=== PATIENT | female | born 1970 ===

== ENCOUNTER 2016-12-01 11:41 | Emergency (ER) | payer OTHER ==
--- NOTE | 2016-12-01 15:54 | ED ORDER SUMMARY ---
..... Patient: LUCIE FITZGERALD OrderSheet VisitID: [id number] [address] [place] [address] 46y, F Registration Date/Time: 12/01/2016 ORDER SHEET Weight: 61.2 kg (stated) Allergies: No Known Drug Allergy GENERAL ORDERS: MEDICATION ORDERS: Vistaril PO 50 mg (NOW) (13:26 12/01/2016 Omar Nickerson) (13:43 KKnebel R.N.) (13:43 KKnebel R.N.) (13:43 KKnebel R.N.) IV FLUIDS: ORDER SHEET NOTES: This document has not been locked and should not be saved in the medical record.
--- NOTE | 2016-12-01 15:54 | ED NURSING NOTES ---
Clinical Report - Nurses [address] [place] [address] 12/01/2016 11:46 Patient: LUCIE FITZGERALD TRIAGE Triage time 12:05. Acuity: LEVEL 4. Chief Complaint: FATIGUE (can't sleep). Alert. No acute distress. BO COMA SCORE: Bo Coma Scale: 15- eyes open spontaneously (4); best verbal response- oriented x 4 (5); best motor response- obeys commands (6). --12:12 Rosy Heller R.N. 12:05 12/01/16. BP: 147/92. HR: 99. RR: 18. O2 saturation: 100% on room air. Temp: 98.3 F (oral). Pain level now: 0/10. --12:12 Rosy Heller R.N. Weight: 61.2 kg stated. Height/Length: 59 inches Per Patient. BMI: 27.3. --12:11 Rosy Heller R.N. Medications Abilify Oral (Tablet 5 mg), daily (hasn't been taking). LORazepam Oral, PRN. --12:07 Rosy Heller R.N. Medication/allergy information source: the patient's spouse. --12:12 Rosy Heller R.N. Allergies No Known Drug Allergy. --12:08 Rosy Heller R.N. History Arrived by private vehicle. Historian: patient. Unaccompanied. Primary physician ([facility]). Onset. (about 2 days). PAST MEDICAL HX: Last normal menstrual period- Oct 2016. SOCIAL HX: Smoker- current status unknown (no). No alcohol use or drug use. FALL RISK ASSESSMENT: Fall risk assessment completed. No fall risk identified. FUNCTIONAL ASSESSMENT: Functional assessment: no impairments noted. LEARNING NEEDS ASSESSMENT: The learning needs assessment revealed no barriers. --12:12 Rosy Heller R.N. PROBLEMS: Bipolar Disorder. --12:09 Rosy Heller R.N. ADDITIONAL SURGERIES: no known surgeries. Assessment GENERAL / NEURO / PSYCH: The patient is awake and alert, is oriented and appears agitated. RESPIRATORY: Respirations not labored. SKIN: Skin is warm and dry. --12:12 Rosy Heller R.N. Interventions ID band on patient. To treatment room. --12:12 Rosy Heller R.N. PHYSICAL ASSESSMENT GENERAL / NEURO / PSYCH: Alert. Oriented X 4. Appears in no acute distress. HEENT: No facial asymmetry noted. RESPIRATORY: Respirations not labored. CVS: Capillary refill less than 2 seconds. GI / : Abdomen nontender. SKIN: Skin is warm and dry. --12:18 Aubrie Sosa R.N. NURSING PROGRESS NOTES Pulse oximeter and NIBP monitor placed on patient. Patient gowned. Head of bed elevated. Two patient identifiers checked. Call light placed in reach. Side rails up x 1. Bed placed in lowest position. Brakes of bed on. Patient ready for evaluation- chart flagged. Patient waiting for evaluation. --12:19 Aubrie Sosa R.N. 13:37 12/01/2016 Vistaril (HydrOXYzine Pamoate) PO Capsules 50 mg given. Allergies verified, confirmed 5 rights and sedative warning given to the patient. --14:02 Aubrie Sosa R.N. ( patient resting quietly at bedside.). --14:31 Aubrie Sosa R.N. 16:04 12/01/2016 Vistaril (HydrOXYzine Pamoate) PO Capsules 50 mg given. Allergies verified, confirmed 5 rights and sedative warning given to the patient. --16:04 Aubrie Sosa R.N. DISPOSITION / DISCHARGE Departure time: 16:10 Dec 01 2016. Condition at departure: improved. No learning barriers present. Reviewed medication(s) side effects, precautions, dosing and course information. Patient verbalized understanding. Written instructions provided in Portuguese. The patient was discharged home and accompanied by spouse. She left the Emergency Department ambulatory and via private vehicle. Spouse driving. FALL RISK ASSESSMENT: Fall risk assessment completed. No fall risk identified. --16:10 Aubrie Sosa R.N. 16:09 12/01/16. BP: 141/90. HR: 105. O2 saturation: 99%. Pain level now: 0/10. --16:10 Aubrie Sosa R.N. Locked/Released at 12/01/2016 16:35 by Aubrie Sosa R.N.
--- NOTE | 2016-12-01 15:54 | ED ORDER SUMMARY ---
..... Patient: LUCIE FITZGERALD OrderSheet [facility] VisitID: [id number] [address] [place] [address] 46y, F Registration Date/Time: 12/01/2016 ORDER SHEET Weight: 61.2 kg (stated) Allergies: No Known Drug Allergy GENERAL ORDERS: MEDICATION ORDERS: Vistaril PO 50 mg (NOW) (13:26 12/01/2016 Omar Nickerson) (13:43 KKnebel R.N.) (13:43 KKnebel R.N.) (13:43 KKnebel R.N.) IV FLUIDS: ORDER SHEET NOTES: This document has not been locked and should not be saved in the medical record.
--- NOTE | 2016-12-01 15:54 | ED CLINICAL REPORT ---
Clinical Report - Physicians/Mid Levels [facility] [address] [place] [address] 12/01/2016 11:46 Patient: LUCIE FITZGERALD *This is a preliminary document and is subject to change Time Seen: 12:43; initial patient contact. PROGRESS AND PROCEDURES Course of Care: Vistaril 50 mg PO given. Physical exam findings are improved. Symptoms better. Rogers Veliz Dr.
--- NOTE | 2016-12-01 15:54 | ED CLINICAL REPORT ---
Clinical Report - Physicians/Mid Levels [facility] [address] [place] [address] 12/01/2016 11:46 Patient: LUCIE FITZGERALD *This is a preliminary document and is subject to change Time Seen: 12:43; initial patient contact. PROGRESS AND PROCEDURES Course of Care: Vistaril 50 mg PO given. Physical exam findings are improved. Symptoms better. Rogers Veliz Dr.
--- NOTE | 2016-12-01 15:54 | ED NURSING NOTES ---
Clinical Report - Nurses [address] [place] [address] 12/01/2016 11:46 Patient: LUCIE FITZGERALD TRIAGE Triage time 12:05. Acuity: LEVEL 4. Chief Complaint: FATIGUE (can't sleep). Alert. No acute distress. BO COMA SCORE: Bo Coma Scale: 15- eyes open spontaneously (4); best verbal response- oriented x 4 (5); best motor response- obeys commands (6). --12:12 Rosy Heller R.N. 12:05 12/01/16. BP: 147/92. HR: 99. RR: 18. O2 saturation: 100% on room air. Temp: 98.3 F (oral). Pain level now: 0/10. --12:12 Rosy Heller R.N. Weight: 61.2 kg stated. Height/Length: 59 inches Per Patient. BMI: 27.3. --12:11 Rosy Heller R.N. Medications Abilify Oral (Tablet 5 mg), daily (hasn't been taking). LORazepam Oral, PRN. --12:07 Rosy Heller R.N. Medication/allergy information source: the patient's spouse. --12:12 Rosy Heller R.N. Allergies No Known Drug Allergy. --12:08 Rosy Heller R.N. History Arrived by private vehicle. Historian: patient. Unaccompanied. Primary physician ([facility]). Onset. (about 2 days). PAST MEDICAL HX: Last normal menstrual period- Oct 2016. SOCIAL HX: Smoker- current status unknown (no). No alcohol use or drug use. FALL RISK ASSESSMENT: Fall risk assessment completed. No fall risk identified. FUNCTIONAL ASSESSMENT: Functional assessment: no impairments noted. LEARNING NEEDS ASSESSMENT: The learning needs assessment revealed no barriers. --12:12 Rosy Heller R.N. PROBLEMS: Bipolar Disorder. --12:09 Rosy Heller R.N. ADDITIONAL SURGERIES: no known surgeries. Assessment GENERAL / NEURO / PSYCH: The patient is awake and alert, is oriented and appears agitated. RESPIRATORY: Respirations not labored. SKIN: Skin is warm and dry. --12:12 Rosy Heller R.N. Interventions ID band on patient. To treatment room. --12:12 Rosy Heller R.N. PHYSICAL ASSESSMENT GENERAL / NEURO / PSYCH: Alert. Oriented X 4. Appears in no acute distress. HEENT: No facial asymmetry noted. RESPIRATORY: Respirations not labored. CVS: Capillary refill less than 2 seconds. GI / : Abdomen nontender. SKIN: Skin is warm and dry. --12:18 Aubrie Sosa R.N. NURSING PROGRESS NOTES Pulse oximeter and NIBP monitor placed on patient. Patient gowned. Head of bed elevated. Two patient identifiers checked. Call light placed in reach. Side rails up x 1. Bed placed in lowest position. Brakes of bed on. Patient ready for evaluation- chart flagged. Patient waiting for evaluation. --12:19 Aubrie Sosa R.N. 13:37 12/01/2016 Vistaril (HydrOXYzine Pamoate) PO Capsules 50 mg given. Allergies verified, confirmed 5 rights and sedative warning given to the patient. --14:02 Aubrie Sosa R.N. ( patient resting quietly at bedside.). --14:31 Aubrie Sosa R.N. 16:04 12/01/2016 Vistaril (HydrOXYzine Pamoate) PO Capsules 50 mg given. Allergies verified, confirmed 5 rights and sedative warning given to the patient. --16:04 Aubrie Sosa R.N. DISPOSITION / DISCHARGE Departure time: 16:10 Dec 01 2016. Condition at departure: improved. No learning barriers present. Reviewed medication(s) side effects, precautions, dosing and course information. Patient verbalized understanding. Written instructions provided in Japanese. The patient was discharged home and accompanied by spouse. She left the Emergency Department ambulatory and via private vehicle. Spouse driving. FALL RISK ASSESSMENT: Fall risk assessment completed. No fall risk identified. --16:10 Aubrie Sosa R.N. 16:09 12/01/16. BP: 141/90. HR: 105. O2 saturation: 99%. Pain level now: 0/10. --16:10 Aubrie Sosa R.N. Locked/Released at 12/01/2016 16:35 by Aubrie Sosa R.N.
--- NOTE | 2016-12-03 01:34 | ED MAR SUMMARY ---
..... Medication Administration Record [facility] [address] [place] [address] Patient: LUCIE FITZGERALD Visit ID: [id number] 46y, F Weight: 61.2 kg Height/Length: 59 in BMI: 27.3 ALLERGIES: No Known Drug Allergy Given 13:37 12/01/2016 Aubrie Sosa, RPamelaNPamela Medication Administered: VISTARIL [PO] (HYDROXYZINE PAMOATE), Dose: 50 mg Capsules PO. Medication Ordered: Vistaril PO 50 mg (NOW). Given 16:04 12/01/2016 Aubrie Sosa, R.NPamela Medication Administered: VISTARIL [PO] (HYDROXYZINE PAMOATE), Dose: 50 mg Capsules PO. Medication Ordered: Vistaril PO 50 mg (NOW).
--- NOTE | 2016-12-03 01:34 | ED DISCHARGE INSTRUCTIONS ---
Patient: LUCIE FITZGERALD General Instructions [facility] VisitID: [id number] [address] [place] [address] 46y, F Registration Date/Time: 12/01/2016 Chronic bipolar disorder. INSTRUCTIONS Your Current Medications: STOP TAKING THE FOLLOWING MEDICATIONS: LORazepam Oral : PRN. CONTINUE TAKING THE FOLLOWING MEDICATIONS: Abilify Oral : Tablet 5 mg, daily, hasn't been taking. Prescription Medications: Vistaril 50 mg: take 1 orally every 6 hours as needed for anxiety. Dispense thirty (30). No refill. Substitution is permissible. Follow-up: Follow up with your doctor in about four days. Call for an appointment. Screening today revealed the patient's blood pressure to be in the hypertensive range. The patient should follow up with a primary care provider for blood pressure management. ADDITIONAL INFORMATION Bipolar Disorder Bipolar disorder (formerly called manic depression) is an illness that causes strong mood swings between depression and alona. This can interfere with work and relationships. In a manic episode, you may think fast and do things quickly. It may seem like you are getting a lot done. At first, this may feel very good; but in the extreme this can lead to a lifestyle that is disorganized, chaotic, and includes risky behavior (spending sprees, sexual acting-out, or drug use). In later stages, it may affect eating (no interest in food) and sleeping (unable to sleep for days at a time). Speech may speed up and become difficult for others to understand. You may appear to others as if you are in your own world. In a depressive episode, you may feel a lack of interest in normal activities. Sometimes there is sadness or guilt without any clear reason. Thinking may become slow and there can be a lack energy or feeling of hopelessness. Some people have thoughts of harming themselves at this stage. Thoughts can even turn to suicide. Between these two phases you may actually feel okay. This does not mean that the illness is gone. People with this disorder will usually have to treat it all of their life. Medication and good care can greatly reduce the symptoms. The exact cause of this illness is unknown. However, there is a genetic link that makes a person more likely to get this problem. Also, the use of drugs such as speed (amphetamine) and cocaine increase the chances of this illness appearing. Home Care: Be sure to take your medicine even if you think you dont need it. Talk with your family about your thoughts and feelings. Follow Up with your doctor or therapist as directed by our staff. They can help you to find ways to improve your life. For more information: The National [place] on Mental Illness www.shine.org 600-417-1681. Get Prompt Medical Attention if any of the following occur: Feeling like your symptoms are getting worse (depression, agitation, excess energy) Unable to eat or sleep for more than 48 hours Feeling out of control (racing thoughts, poor concentration) Feeling like you want to harm yourself or another Being unable to care for yourself Hydroxyzine Pamoate Oral capsule What is this medicine? HYDROXYZINE (gilson DROX i zeen) is an antihistamine. This medicine is used to treat allergy symptoms. It is also used to treat anxiety and tension. This medicine can be used with other medicines to induce sleep before surgery. How should I use this medicine? Take this medicine by mouth with a full glass of water. Follow the directions on the prescription label. You may take this medicine with food or on an empty stomach. Take your medicine at regular intervals. Do not take your medicine more often than directed. Talk to your shop tailor regarding the use of this medicine in children. Special care may be needed. While this drug may be prescribed for children as young as 6 years of age for selected conditions, precautions do apply. Patients over 65 years old may have a stronger reaction and need a smaller dose. What side effects may I notice from receiving this medicine? Side effects that you should report to your doctor or health foster care therapist as soon as possible: fast or irregular heartbeat difficulty passing urine seizures slurred speech or confusion tremor Side effects that usually do not require medical attention (report to your doctor or health foster care therapist if they continue or are bothersome): constipation drowsiness fatigue headache stomach upset What may interact with this medicine? alcohol barbiturate medicines for sleep or seizures medicines for colds, allergies medicines for depression, anxiety, or emotional disturbances medicines for pain medicines for sleep muscle relaxants What if I miss a dose? If you miss a dose, take it as soon as you can. If it is almost time for your next dose, take only that dose. Do not take double or extra doses. Where should I keep my medicine? Keep out of the reach of children. Store at room temperature between 15 and 30 degrees C (59 and 86 degrees F). Keep container tightly closed. Throw away any unused medicine after the expiration date. What should I tell my health care provider before I take this medicine? They need to know if you have any of these conditions: any chronic illness difficulty passing urine glaucoma heart disease kidney disease liver disease lung disease an unusual or allergic reaction to hydroxyzine, cetirizine, other medicines, foods, dyes, or preservatives or trying to get breast-feeding What should I watch for while using this medicine? Tell your doctor or health foster care therapist if your symptoms do not improve. You may get drowsy or dizzy. Do not drive, use machinery, or do anything that needs mental alertness until you know how this medicine affects you. Do not stand or sit up quickly, especially if you are an older patient. This reduces the risk of dizzy or fainting spells. Alcohol may interfere with the effect of this medicine. Avoid alcoholic drinks. Your mouth may get dry. Chewing sugarless gum or sucking hard candy, and drinking plenty of water may help. Contact your doctor if the problem does not go away or is severe. This medicine may cause dry eyes and blurred vision. If you wear contact lenses you may feel some discomfort. Lubricating drops may help. See your eye doctor if the problem does not go away or is severe. If you are receiving skin tests for allergies, tell your doctor you are using this medicine. You have been given the following additional information: Bipolar Disorder Hydroxyzine Pamoate Oral capsule (Electronically signed by Rogers Veliz Dr. 12/03/2016 1:33)
--- NOTE | 2016-12-03 01:34 | ED DISCHARGE INSTRUCTIONS ---
Patient: LUCIE FITZGERALD General Instructions [facility] VisitID: [id number] [address] [place] [address] 46y, F Registration Date/Time: 12/01/2016 Chronic bipolar disorder. INSTRUCTIONS Your Current Medications: STOP TAKING THE FOLLOWING MEDICATIONS: LORazepam Oral : PRN. CONTINUE TAKING THE FOLLOWING MEDICATIONS: Abilify Oral : Tablet 5 mg, daily, hasn't been taking. Prescription Medications: Vistaril 50 mg: take 1 orally every 6 hours as needed for anxiety. Dispense thirty (30). No refill. Substitution is permissible. Follow-up: Follow up with your doctor in about four days. Call for an appointment. Screening today revealed the patient's blood pressure to be in the hypertensive range. The patient should follow up with a primary care provider for blood pressure management. ADDITIONAL INFORMATION Bipolar Disorder Bipolar disorder (formerly called manic depression) is an illness that causes strong mood swings between depression and alona. This can interfere with work and relationships. In a manic episode, you may think fast and do things quickly. It may seem like you are getting a lot done. At first, this may feel very good; but in the extreme this can lead to a lifestyle that is disorganized, chaotic, and includes risky behavior (spending sprees, sexual acting-out, or drug use). In later stages, it may affect eating (no interest in food) and sleeping (unable to sleep for days at a time). Speech may speed up and become difficult for others to understand. You may appear to others as if you are in your own world. In a depressive episode, you may feel a lack of interest in normal activities. Sometimes there is sadness or guilt without any clear reason. Thinking may become slow and there can be a lack energy or feeling of hopelessness. Some people have thoughts of harming themselves at this stage. Thoughts can even turn to suicide. Between these two phases you may actually feel okay. This does not mean that the illness is gone. People with this disorder will usually have to treat it all of their life. Medication and good care can greatly reduce the symptoms. The exact cause of this illness is unknown. However, there is a genetic link that makes a person more likely to get this problem. Also, the use of drugs such as speed (amphetamine) and cocaine increase the chances of this illness appearing. Home Care: Be sure to take your medicine even if you think you dont need it. Talk with your family about your thoughts and feelings. Follow Up with your doctor or therapist as directed by our staff. They can help you to find ways to improve your life. For more information: The National [place] on Mental Illness www.shine.org 213-793-1558. Get Prompt Medical Attention if any of the following occur: Feeling like your symptoms are getting worse (depression, agitation, excess energy) Unable to eat or sleep for more than 48 hours Feeling out of control (racing thoughts, poor concentration) Feeling like you want to harm yourself or another Being unable to care for yourself Hydroxyzine Pamoate Oral capsule What is this medicine? HYDROXYZINE (gilson DROX i zeen) is an antihistamine. This medicine is used to treat allergy symptoms. It is also used to treat anxiety and tension. This medicine can be used with other medicines to induce sleep before surgery. How should I use this medicine? Take this medicine by mouth with a full glass of water. Follow the directions on the prescription label. You may take this medicine with food or on an empty stomach. Take your medicine at regular intervals. Do not take your medicine more often than directed. Talk to your senior boiler operator regarding the use of this medicine in children. Special care may be needed. While this drug may be prescribed for children as young as 6 years of age for selected conditions, precautions do apply. Patients over 65 years old may have a stronger reaction and need a smaller dose. What side effects may I notice from receiving this medicine? Side effects that you should report to your doctor or health coronary care unit nurse as soon as possible: fast or irregular heartbeat difficulty passing urine seizures slurred speech or confusion tremor Side effects that usually do not require medical attention (report to your doctor or health coronary care unit nurse if they continue or are bothersome): constipation drowsiness fatigue headache stomach upset What may interact with this medicine? alcohol barbiturate medicines for sleep or seizures medicines for colds, allergies medicines for depression, anxiety, or emotional disturbances medicines for pain medicines for sleep muscle relaxants What if I miss a dose? If you miss a dose, take it as soon as you can. If it is almost time for your next dose, take only that dose. Do not take double or extra doses. Where should I keep my medicine? Keep out of the reach of children. Store at room temperature between 15 and 30 degrees C (59 and 86 degrees F). Keep container tightly closed. Throw away any unused medicine after the expiration date. What should I tell my health care provider before I take this medicine? They need to know if you have any of these conditions: any chronic illness difficulty passing urine glaucoma heart disease kidney disease liver disease lung disease an unusual or allergic reaction to hydroxyzine, cetirizine, other medicines, foods, dyes, or preservatives or trying to get breast-feeding What should I watch for while using this medicine? Tell your doctor or health coronary care unit nurse if your symptoms do not improve. You may get drowsy or dizzy. Do not drive, use machinery, or do anything that needs mental alertness until you know how this medicine affects you. Do not stand or sit up quickly, especially if you are an older patient. This reduces the risk of dizzy or fainting spells. Alcohol may interfere with the effect of this medicine. Avoid alcoholic drinks. Your mouth may get dry. Chewing sugarless gum or sucking hard candy, and drinking plenty of water may help. Contact your doctor if the problem does not go away or is severe. This medicine may cause dry eyes and blurred vision. If you wear contact lenses you may feel some discomfort. Lubricating drops may help. See your eye doctor if the problem does not go away or is severe. If you are receiving skin tests for allergies, tell your doctor you are using this medicine. You have been given the following additional information: Bipolar Disorder Hydroxyzine Pamoate Oral capsule (Electronically signed by Rogers Veliz Dr. 12/03/2016 1:33)
--- NOTE | 2016-12-03 01:34 | ED MED RECONCILIATION SUMMARY ---
Patient: LUCIE FITZGERALD Medication Reconciliation Report [facility] VisitID: [id number] [address] [place] [address] 46y, F Registration Date/Time: 12/01/2016 Weight: 61.2 kg Height/Length: 59 in. BMI: 27.3 ALLERGIES: No Known Drug Allergy The patient's Home Medications are listed below: STOP TAKING THE FOLLOWING MEDICATIONS: LORazepam Oral, PRN CONTINUE TAKING THE FOLLOWING MEDICATIONS: Abilify Oral (5 mg), daily, hasn't been taking The source(s) of the original Home Medication information: patient's spouse The following Medications were given to the patient in the Emergency Department: Vistaril [PO] PO 50 mg, administered: 12/01/2016 1:37:00 PM Vistaril [PO] PO 50 mg, administered: 12/01/2016 4:04:00 PM The following Medications were prescribed to the patient: Vistaril 50 mg: take 1 orally every 6 hours as needed for anxiety. Dispense thirty (30). No refill. Substitution is permissible. -- Rogers Veliz Dr.
--- NOTE | 2016-12-03 01:34 | ED MED RECONCILIATION SUMMARY ---
Patient: LUCIE FITZGERALD Medication Reconciliation Report [facility] VisitID: [id number] [address] [place] [address] 46y, F Registration Date/Time: 12/01/2016 Weight: 61.2 kg Height/Length: 59 in. BMI: 27.3 ALLERGIES: No Known Drug Allergy The patient's Home Medications are listed below: STOP TAKING THE FOLLOWING MEDICATIONS: LORazepam Oral, PRN CONTINUE TAKING THE FOLLOWING MEDICATIONS: Abilify Oral (5 mg), daily, hasn't been taking The source(s) of the original Home Medication information: patient's spouse The following Medications were given to the patient in the Emergency Department: Vistaril [PO] PO 50 mg, administered: 12/01/2016 1:37:00 PM Vistaril [PO] PO 50 mg, administered: 12/01/2016 4:04:00 PM The following Medications were prescribed to the patient: Vistaril 50 mg: take 1 orally every 6 hours as needed for anxiety. Dispense thirty (30). No refill. Substitution is permissible. -- Rogers Veliz Dr.
--- NOTE | 2016-12-03 01:34 | ED MAR SUMMARY ---
..... Medication Administration Record [facility] [address] [place] [address] Patient: LUCIE FITZGERALD Visit ID: [id number] 46y, F Weight: 61.2 kg Height/Length: 59 in BMI: 27.3 ALLERGIES: No Known Drug Allergy Given 13:37 12/01/2016 Aubrie Sosa, RPamelaNPamela Medication Administered: VISTARIL [PO] (HYDROXYZINE PAMOATE), Dose: 50 mg Capsules PO. Medication Ordered: Vistaril PO 50 mg (NOW). Given 16:04 12/01/2016 Aubrie Sosa, R.NPamela Medication Administered: VISTARIL [PO] (HYDROXYZINE PAMOATE), Dose: 50 mg Capsules PO. Medication Ordered: Vistaril PO 50 mg (NOW).
== END 2016-12-01 16:10 | disposition home or self-care (01) ==
LOC: ED SRH 11:41
DX: F31.89 Other bipolar disorder (principal)